=== PATIENT | female | born 1975 | race African-American/Black ===

== ENCOUNTER 2021-09-14 13:18 | Emergency (ER) | payer MEDICAID ==
[~2021-09-14] VITALS: Ht 157.5 cm; Wt 81.6 kg
--- NOTE | 2021-09-14 13:21 | NUR ---
TO ER BED 11, BIBSECHIVO C/O HEADACHE, CHEST PAIN, LOWER ABDOMINAL PAIN STARTED YESTERDAY, AAOX3, BREATHING EVEN AND NON LABORED, CONNECTED TO MONITOR, AWAITING MD ORDERS
[2021-09-14] MEDS ORDERED: MECLIZINE HCL 25 MG TABLET ONE (14:53)
--- NOTE | 2021-09-14 14:56 | NUR ---
URINE COLLECTED AND SENT TO LAB
[2021-09-14] MEDS ORDERED: MECLIZINE HCL 25 MG TABLET PO ONE (15:00)
--- NOTE | 2021-09-14 15:07 | NUR ---
US TECH AT PT'S BEDSIDE
[2021-09-14 15:35] LABS: BASOPHILS % (AUTO) 0.6 % (0.0-2.0); EOSINOPHILS % (AUTO) 0.4 % (0.0-6.0); HEMATOCRIT 39 % (33-45); HEMOGLOBIN 13.4 g/dL (11.5-14.8); LYMPHOCYTES # (AUTO) 1.3 K/uL (0.8-4.8); LYMPHOCYTES % (AUTO) 21.7 % (20.0-44.0); MEAN CORPUSCULAR HGB CONC 34 g/dl (31.0-36.0); MEAN CORPUSCULAR VOLUME 97 fL (82-100); MONOCYTES # (AUTO) 0.4 K/uL (0.1-1.30); MONOCYTES % (AUTO) 7.4 % (2.0-12.0); NEUTROPHILS # (AUTO) 4.2 K/uL (1.8-8.9); NEUTROPHILS % (AUTO) 69.9 % (43.0-81.0); PLATELET COUNT (AUTO) 381 K/uL (150-450); RED BLOOD CELL COUNT(AUTO) 4.05 MIL/uL (4.0-5.2)
[2021-09-14 15:40] LABS: CREATININE 0.8 mg/dL (0.6-1.3); POTASSIUM 3.4 mmol/L (3.5-5.1)
[2021-09-14 15:41] LABS: BILIRUBIN,URINE Negative (NEGATIVE); COLOR,URINE YELLOW (YELLOW); LEUKOCYTE ESTERASE ,URINE Negative (NEGATIVE); NITRITE, URINE Negative (NEGATIVE); PH,URINE 6.5 (5.0-8.0); PROTEIN,URINE Negative (NEGATIVE); UGLUCOSE Negative (NEGATIVE); UROBILINOGEN,URINE 0.2 EU/dL (0.2)
[2021-09-14 15:47] LABS: ALBUMIN 3.5 g/dL (3.4-5.0); BILIRUBIN,DIRECT 0.1 mg/dL (0.0-0.2); BILIRUBIN,TOTAL 0.7 mg/dL (0.2-1.0); TOTAL PROTEIN, SERUM 7.4 g/dL (6.4-8.2)
[2021-09-14] MEDS ORDERED: IBUP-1955 PO (17:10)
--- NOTE | 2021-09-14 17:19 | NUR ---
IV removed. Catheter intact and site benign. Pressure and 4x4 applied to site. No bleeding noted.Patient discharged to home in stable condition. Written and verbal after care instructions given. Patient verbalizes understanding of instruction.
[2021-09-14 17:20] VITALS: BP 131/77
== END 2021-09-14 17:21 | disposition home or self-care (01) ==
LOC: ER 13:27
DX: D25.9 Leiomyoma of uterus, unspecified (principal); K80.20 Calculus of gallbladder without cholecystitis without obstruction; R42 Dizziness and giddiness; E78.5 Hyperlipidemia, unspecified; K21.9 Gastro-esophageal reflux disease without esophagitis; F32.9 Major depressive disorder, single episode, unspecified; D64.9 Anemia, unspecified
CPT/HCPCS: 36415; 70450; 76705; 76856; 80048; 80076; 81003; 83690; 84484; 84703; 85025; 85378; 93005; 99285; J8597

== ENCOUNTER 2021-09-16 10:05 | Emergency (ER) | payer MEDICAID ==
[~2021-09-16] VITALS: Ht 165.1 cm; Wt 81.6 kg
[~2021-09-16 10:05] MED LIST: IBUP-1955 PO
--- NOTE | 2021-09-16 10:05 | NUR ---
PT BIB SELF C/O LOWER ABDOMINAL PAIN X 3 DAYS. SEEN HERE LAST TIME FOR SAME CC. PT IS AAOX4, NOT IN RESPIRATORY DISTRESS, V/S STABLE, KEPT RESTED AND COMFORTABLE. WILL CONTINUE TO MONITOR.
--- NOTE | 2021-09-16 10:30 | NUR ---
SEEN AND EXAMINED BY .
--- NOTE | 2021-09-16 10:36 | NUR ---
URINE SPECIMEN COLLECTED AND SENT TO LAB.
[2021-09-16] MEDS ORDERED: MORPHINE SULFATE INJ 4 MG/ML DISP.SYRIN ONE (10:48)
[2021-09-16] MEDS ORDERED: METOCLOPRAMIDE HCL 10 MG/2 ML VIAL ONE (10:48)
[2021-09-16 10:53] LABS: BASOPHILS % (AUTO) 0.8 % (0.0-2.0); BILIRUBIN,URINE Negative (NEGATIVE); COLOR,URINE YELLOW (YELLOW); EOSINOPHILS % (AUTO) 0.7 % (0.0-6.0); HEMATOCRIT 43 % (33-45); HEMOGLOBIN 14.5 g/dL (11.5-14.8); LEUKOCYTE ESTERASE ,URINE Negative (NEGATIVE); LYMPHOCYTES # (AUTO) 1.2 K/uL (0.8-4.8); LYMPHOCYTES % (AUTO) 24.7 % (20.0-44.0); MEAN CORPUSCULAR HGB CONC 34 g/dl (31.0-36.0); MEAN CORPUSCULAR VOLUME 98 fL (82-100); MONOCYTES # (AUTO) 0.5 K/uL (0.1-1.30); MONOCYTES % (AUTO) 9.4 % (2.0-12.0); NEUTROPHILS # (AUTO) 3.2 K/uL (1.8-8.9); NEUTROPHILS % (AUTO) 64.4 % (43.0-81.0); NITRITE, URINE Negative (NEGATIVE); PH,URINE 7.5 (5.0-8.0); PLATELET COUNT (AUTO) 387 K/uL (150-450); PROTEIN,URINE Negative (NEGATIVE); RED BLOOD CELL COUNT(AUTO) 4.36 MIL/uL (4.0-5.2); UGLUCOSE Negative (NEGATIVE); UROBILINOGEN,URINE 0.2 EU/dL (0.2); WHITE BLOOD COUNT (AUTO) 4.9 K/uL (4.3-11.0)
[2021-09-16 10:59] LABS: CALCIUM, SERUM 8.8 mg/dL (8.5-10.1); POTASSIUM 3.7 mmol/L (3.5-5.1)
[2021-09-16] MEDS ORDERED: METOCLOPRAMIDE HCL 10 MG/2 ML VIAL IV ONE (11:00)
[2021-09-16] MEDS ORDERED: MORPHINE SULFATE INJ 2 MG/ML DISP.SYRIN IV ONE (11:00)
[2021-09-16] MEDS ORDERED: IV NS 0.9% 1,000 ML BAG IV ONE (11:00)
[2021-09-16 11:05] LABS: ALBUMIN 3.6 g/dL (3.4-5.0); BILIRUBIN,DIRECT 0.1 mg/dL (0.0-0.2); BILIRUBIN,TOTAL 0.8 mg/dL (0.2-1.0); TOTAL PROTEIN, SERUM 7.6 g/dL (6.4-8.2)
--- NOTE | 2021-09-16 11:32 | NUR ---
PT IN BED COMFORTABLE. DENIES N/V AT THIS TIME. LAC #20G IVF NS INFUSING; TOLERATING WELL. NO SOB; RESPIRATIONS ARE EVEN AND NONLABORED ON ROOM AIR. VSS
[2021-09-16] MEDS ORDERED: OXYC-128 PO (11:44)
--- NOTE | 2021-09-16 11:55 | NUR ---
Patient discharged to home in stable condition. RX Written and verbal after care instructions given. Patient verbalizes understanding of instruction. PT ambulatory with a steady gait.
[2021-09-16 11:59] VITALS: BP 129/75
== END 2021-09-16 11:59 | disposition home or self-care (01) ==
LOC: ER 10:38
DX: R10.30 Lower abdominal pain, unspecified (principal); K21.9 Gastro-esophageal reflux disease without esophagitis; F32.9 Major depressive disorder, single episode, unspecified
CPT/HCPCS: 36415; 80048; 80076; 81003; 83690; 84703; 85025; 96361; 96374; 96375; 99284; J2270; J2765; J7030